=== PATIENT | female | born 1950 | race Caucasian/White ===

== ENCOUNTER 2020-09-12 16:37 | Inpatient (IN) | payer MEDICARE, OTHER ==
[~2020-09-12] VITALS: Ht 162.6 cm; Wt 80.8 kg
[~2020-09-12 16:37] MED LIST: ACETAZOLAMIDE500 MG PO; ASPIR-LOW81 MG PO; ATROPINE 1% EYELF; FUROSEMIDE40 MG PO; GLUCOTROL XL2.5 MG PO; LEVOFLOXACIN500 MG PO; LISINOPRIL10 MG PO; LISINOPRIL40 MG PO; METFORMIN HCL500 M2 PO; METRONIDAZOLE250 MG PO; POTASSIUM CHLO20 ME2 PO; PREDNISOLONE AC10 ML EYELF; ZOFRAN4 MG PO; [UNRECOGNIZED DRUG - OTHER] TOP
[2020-09-12 18:04] LABS: HEMOGLOBIN 11.2 gm/dl (12.3-15.3); RED BLOOD COUNT 3.71 M/UL (4.00-5.10); WHITE BLOOD COUNT 8.1 K/UL (4.5-11.0)
[2020-09-12 18:40] LABS: BUN/CREATININE RATIO 34 (0-10)
[2020-09-13] MEDS ORDERED: JANUMET XR 50-1 EAC1 PO (01:44)
[2020-09-13] MEDS ORDERED: LISINOPRIL10 MG PO (01:44)
[2020-09-13] MEDS ORDERED: LASIX40 MG PO (01:45)
[2020-09-15 02:47] LABS: HEMOGLOBIN 10.2 gm/dl (12.3-15.3); RED BLOOD COUNT 3.36 M/UL (4.00-5.10); WHITE BLOOD COUNT 8.2 K/UL (4.5-11.0)
[2020-09-16 03:39] LABS: HEMOGLOBIN 10.1 gm/dl (12.3-15.3); RED BLOOD COUNT 3.37 M/UL (4.00-5.10); WHITE BLOOD COUNT 8.8 K/UL (4.5-11.0)
[2020-09-17 04:41] LABS: RED BLOOD COUNT 3.29 M/UL (4.00-5.10); WHITE BLOOD COUNT 6.8 K/UL (4.5-11.0)
[2020-09-18] MEDS ORDERED: FUROSEMIDE40 MG PO (16:08)
[2020-09-18] MEDS ORDERED: JARDIANCE10 MG PO (16:08)
[2020-09-18] MEDS ORDERED: HYDRALAZINE HCL50 MG PO (16:08)
[2020-11-12] MEDS ORDERED: ZAROXOLYN/DIUL2.5 MG PO (01:45)
== END 2020-09-18 18:33 | disposition home or self-care (01) | DRG 291 ==
LOC: ER1 16:37 → CDU 21:35 → M/S 21:35
PROVIDERS: Internal Medicine; Nurse Practitioner; ADMIT Internal Medicine
DX: I50.43 Acute on chronic combined systolic (congestive) and diastolic (congestive) heart failure (principal); J96.01 Acute respiratory failure with hypoxia; I13.0 Hypertensive heart and chronic kidney disease with heart failure and stage 1 through stage 4 chronic kidney disease, or unspecified chronic kidney disease; N39.0 Urinary tract infection, site not specified; N17.9 Acute kidney failure, unspecified; B96.20 Unspecified Escherichia coli [E. coli] as the cause of diseases classified elsewhere; E66.9 Obesity, unspecified; K75.81 Nonalcoholic steatohepatitis (NASH); Z20.822 Contact with and (suspected) exposure to COVID-19; E11.9 Type 2 diabetes mellitus without complications; D64.9 Anemia, unspecified; I08.1 Rheumatic disorders of both mitral and tricuspid valves; I27.20 Pulmonary hypertension, unspecified; E11.22 Type 2 diabetes mellitus with diabetic chronic kidney disease; N18.30 Chronic kidney disease, stage 3 unspecified; Z90.710 Acquired absence of both cervix and uterus; Z90.49 Acquired absence of other specified parts of digestive tract; Z90.11 Acquired absence of right breast and nipple; Z79.82 Long term (current) use of aspirin; Z85.3 Personal history of malignant neoplasm of breast; Z68.32 Body mass index [BMI] 32.0-32.9, adult
CPT/HCPCS: 0240U; 36415; 36600; 71045; 80048; 80053; 81001; 82550; 82553; 82803; 82962; 83036; 83605; 83735; 83880; 84484; 85025; 85027; 85610; 87040; 87077; 87086; 87186; 93005; 96372; 96374; 96376; 99285; J0696; J1650; J1940

== ENCOUNTER 2020-11-10 18:24 | Emergency (ER) | payer MEDICARE ==
[~2020-11-10 18:24] MED LIST changes: +HYDRALAZINE HCL50 MG PO; +JANUMET XR 50-1 EAC1 PO; +JARDIANCE10 MG PO; +LASIX40 MG PO
[2020-11-10 20:01] LABS: HEMOGLOBIN 13.4 gm/dl (12.3-15.3); RED BLOOD COUNT 4.36 M/UL (4.00-5.10); WHITE BLOOD COUNT 9.7 K/UL (4.5-11.0)
[2020-11-12] MEDS ORDERED: ZAROXOLYN/DIUL2.5 MG PO (01:45)
== END 2020-11-10 23:00 | disposition home or self-care (01) ==
LOC: ER1 18:24
PROVIDERS: Physician Assistant Medical
DX: E11.65 Type 2 diabetes mellitus with hyperglycemia (principal); N17.9 Acute kidney failure, unspecified; Z20.822 Contact with and (suspected) exposure to COVID-19
CPT/HCPCS: 70450; 71046; 80053; 81001; 82010; 83735; 83880; 84100; 85025; 93005; 99285; J7040; U0002

== ENCOUNTER 2020-11-12 12:45 | Inpatient (IN) | payer MEDICARE ==
[~2020-11-12] VITALS: Ht 162.6 cm; Wt 89.0 kg
[~2020-11-12 12:45] MED LIST changes: +ZAROXOLYN/DIUL2.5 MG PO
[2020-11-12 14:31] LABS: HEMOGLOBIN 12.1 gm/dl (12.3-15.3); RED BLOOD COUNT 4.1 M/UL (4.00-5.10)
[2020-11-12 14:34] LABS: WHITE BLOOD COUNT 15.6 K/UL (4.5-11.0)
[2020-11-12] MEDS ORDERED: BASAGLAR K100 UNIT/1 SC (18:03)
[2020-11-12] MEDS ORDERED: TRAVATAN Z5 ML EYELF (18:04)
[2020-11-12] MEDS ORDERED: LASIX40 MG PO (18:04)
[2020-11-12] MEDS ORDERED: DORZOLAMIDE 2%10 ML EYELF (18:05)
[2020-11-12] MEDS ORDERED: COMBIGAN EYE DRO5 ML EYELF (18:06)
[2020-11-12] MEDS ORDERED: POLYSPORIN OP3.5 GM EYELF (18:07)
[2020-11-13 04:37] LABS: HEMOGLOBIN 10.1 gm/dl (12.3-15.3); RED BLOOD COUNT 3.32 M/UL (4.00-5.10); WHITE BLOOD COUNT 10.4 K/UL (4.5-11.0)
[2020-11-14 03:07] LABS: HEMOGLOBIN 8.7 gm/dl (12.3-15.3); RED BLOOD COUNT 2.86 M/UL (4.00-5.10); WHITE BLOOD COUNT 6.6 K/UL (4.5-11.0)
[2020-11-15 02:47] LABS: RED BLOOD COUNT 3.03 M/UL (4.00-5.10); WHITE BLOOD COUNT 6.1 K/UL (4.5-11.0)
[2020-11-16 02:24] LABS: HEMOGLOBIN 7.6 gm/dl (12.3-15.3)
[2020-11-16 02:25] LABS: RED BLOOD COUNT 2.52 M/UL (4.00-5.10); WHITE BLOOD COUNT 10.1 K/UL (4.5-11.0)
[2020-11-17 04:28] LABS: HEMOGLOBIN 8.3 gm/dl (12.3-15.3); RED BLOOD COUNT 2.74 M/UL (4.00-5.10); WHITE BLOOD COUNT 9.2 K/UL (4.5-11.0)
[2020-11-17 19:01] LABS: URINE TOTAL PROTEIN 100 mg/dl
[2020-11-18 04:24] LABS: HEMOGLOBIN 7.9 gm/dl (12.3-15.3); RED BLOOD COUNT 2.62 M/UL (4.00-5.10); WHITE BLOOD COUNT 7.6 K/UL (4.5-11.0)
--- NOTE | 2020-11-18 22:15 | NUR ---
called at 2139 asking pharmacy to bring patient's zosyn for 2200 dose, still waiting
[2020-11-19 07:06] LABS: HEMOGLOBIN 7.6 gm/dl (12.3-15.3); RED BLOOD COUNT 2.52 M/UL (4.00-5.10); WHITE BLOOD COUNT 7.6 K/UL (4.5-11.0)
[2020-11-19 12:14] LABS: COMPLEMENT C3, SERUM 132 mg/dL (82-167); COMPLEMENT C4, SERUM 26 mg/dL (12-38)
[2020-11-19 13:15] LABS: ANTI-DSDNA ANTIBODIES <1 IU/mL (0-9)
[2020-11-19 16:15] LABS: A/G RATIO 0.9 (0.7-1.7); ALBUMIN 2.2 g/dL (2.9-4.4); ALPHA-1-GLOBULIN 0.3 g/dL (0.0-0.4); ALPHA-2-GLOBULIN 0.8 g/dL (0.4-1.0); BETA GLOBULIN 0.9 g/dL (0.7-1.3); GAMMA GLOBULIN 0.7 g/dL (0.4-1.8); GLOBULIN, TOTAL 2.7 g/dL (2.2-3.9); IMMUNOGLOBULIN A, QN, SERUM 186 mg/dL (87-352); IMMUNOGLOBULIN G, QN, SERUM 677 mg/dL (586-1602); IMMUNOGLOBULIN M, QN, SERUM 49 mg/dL (26-217); M-SPIKE Not Observed g/dL (Not Observed); PROTEIN, TOTAL, SERUM 4.9 g/dL (6.0-8.5)
[2020-11-20 14:11] LABS: ANTIMYELOPEROXIDASE (MPO) ABS <9.0 U/mL (0.0-9.0); ANTIPROTEINASE 3 (PR-3) ABS <3.5 U/mL (0.0-3.5); ATYPICAL PANCA <1:20 titer (Neg:<1:20); CYTOPLASMIC (C-ANCA) <1:20 titer (Neg:<1:20); PERINUCLEAR (P-ANCA) <1:20 titer (Neg:<1:20)
[2020-11-23 13:01] LABS: HEMOGLOBIN 7.9 gm/dl (12.3-15.3); RED BLOOD COUNT 2.59 M/UL (4.00-5.10); WHITE BLOOD COUNT 6.7 K/UL (4.5-11.0)
[2020-11-24 06:58] LABS: HEMOGLOBIN 7.6 gm/dl (12.3-15.3); RED BLOOD COUNT 2.45 M/UL (4.00-5.10); WHITE BLOOD COUNT 6.6 K/UL (4.5-11.0)
[2020-11-28 09:20] LABS: HEMOGLOBIN 7.9 gm/dl (12.3-15.3); RED BLOOD COUNT 2.58 M/UL (4.00-5.10); WHITE BLOOD COUNT 9.9 K/UL (4.5-11.0)
[2020-11-29 12:48] LABS: HEMOGLOBIN 8.3 gm/dl (12.3-15.3); RED BLOOD COUNT 2.65 M/UL (4.00-5.10); WHITE BLOOD COUNT 8.7 K/UL (4.5-11.0)
[2020-11-30 06:00] LABS: HEMOGLOBIN 7.4 gm/dl (12.3-15.3); RED BLOOD COUNT 2.37 M/UL (4.00-5.10); WHITE BLOOD COUNT 7.7 K/UL (4.5-11.0)
[2020-12-01 04:18] LABS: HEMOGLOBIN 7.4 gm/dl (12.3-15.3); RED BLOOD COUNT 2.43 M/UL (4.00-5.10); WHITE BLOOD COUNT 6.9 K/UL (4.5-11.0)
[2020-12-02 08:27] LABS: HEMOGLOBIN 7.9 gm/dl (12.3-15.3); RED BLOOD COUNT 2.56 M/UL (4.00-5.10); WHITE BLOOD COUNT 7.7 K/UL (4.5-11.0)
[2020-12-02] MEDS ORDERED: NORVASC5 MG PO (10:00)
[2020-12-02] MEDS ORDERED: LACTULOSE20 GM/30 M PO (10:19)
[2020-12-02] MEDS ORDERED: LASIX40 MG PO (10:19)
[2020-12-02] MEDS ORDERED: PERCOCET 5/325 T1 EA PO (10:19)
--- NOTE | 2020-12-02 14:56 | NUR ---
PATIENT DISCHARGED AND OUT OF BUILDING BEFORE LAST NURSING COMMUNICATION ADDED. WILL PASS ALONG IN REPORT TO [facility].
== END 2020-12-02 14:49 | disposition home or self-care (01) | DRG 492 ==
LOC: ER1 12:45 → CDU 17:03 → M/S 17:03 → PROG CARE 18:14 → M/S 11-15 15:14
PROVIDERS: Family Medicine; Internal Medicine; Internal Medicine Nephrology; Orthopaedic Surgery; Physician Assistant Medical; ADMIT Internal Medicine
PROC: B24BZZ4 Ultrasonography of Heart with Aorta, Transesophageal (ICD-10-PCS; 2020-11-13)
PROC: 0QSH04Z Reposition Left Tibia with Internal Fixation Device, Open Approach (ICD-10-PCS; principal; 2020-11-14 11:00)
DX: S82.852A Displaced trimalleolar fracture of left lower leg, initial encounter for closed fracture (principal); I50.43 Acute on chronic combined systolic (congestive) and diastolic (congestive) heart failure; I13.0 Hypertensive heart and chronic kidney disease with heart failure and stage 1 through stage 4 chronic kidney disease, or unspecified chronic kidney disease; N17.9 Acute kidney failure, unspecified; N13.6 Pyonephrosis; E87.1 Hypo-osmolality and hyponatremia; Z20.822 Contact with and (suspected) exposure to COVID-19; N18.30 Chronic kidney disease, stage 3 unspecified; S93.511A Sprain of interphalangeal joint of right great toe, initial encounter; E78.5 Hyperlipidemia, unspecified; K70.30 Alcoholic cirrhosis of liver without ascites; E66.9 Obesity, unspecified; I08.1 Rheumatic disorders of both mitral and tricuspid valves; I27.20 Pulmonary hypertension, unspecified; S82.491A Other fracture of shaft of right fibula, initial encounter for closed fracture; E87.6 Hypokalemia; M81.0 Age-related osteoporosis without current pathological fracture; D63.1 Anemia in chronic kidney disease; K56.41 Fecal impaction; W18.30XA Fall on same level, unspecified, initial encounter; E11.22 Type 2 diabetes mellitus with diabetic chronic kidney disease; R33.9 Retention of urine, unspecified; Z79.4 Long term (current) use of insulin; Z68.33 Body mass index [BMI] 33.0-33.9, adult; Z90.49 Acquired absence of other specified parts of digestive tract; Z90.11 Acquired absence of right breast and nipple; Z79.82 Long term (current) use of aspirin; Z80.9 Family history of malignant neoplasm, unspecified; Z82.49 Family history of ischemic heart disease and other diseases of the circulatory system
CPT/HCPCS: ECHO; 29505; 36415; 70450; 71045; 71046; 73564; 73590; 73610; 73630; 73700; 74018; 76000; 80048; 80053; 81001; 82009; 82010; 82550; 82553; 82565; 82570; 82784; 82962; 82977; 83036; 83520; 83540; 83550; 83735; 83874; 83880; 84100; 84132; 84133; 84155; 84156; 84165; 84300; 84484; 85014; 85018; 85025; 85027; 86038; 86160; 86225; 86256; 86334; 87086; 89050; 93005; 93306; 96372; 96374; 96375; 97110-GP-CQ; 97162; 97164; 97165; 97530; 97530-GP-CQ; 97535; 99285; C1713; J0690; J1100; J1644; J1940; J2001; J2250; J2270; J2405; J2543; J2550; J2704; J2795; J3010; J3480; J7030; J7040; J7120; U0002

== ENCOUNTER 2021-06-06 19:09 | Inpatient (IN) | payer MEDICARE, MEDICAID ==
[~2021-06-06] VITALS: Ht 162.6 cm; Wt 98.4 kg
[~2021-06-06 19:09] MED LIST changes: +BASAGLAR K100 UNIT/1 SC; +COMBIGAN EYE DRO5 ML EYELF; +DORZOLAMIDE 2%10 ML EYELF; +LACTULOSE20 GM/30 M PO; +NORVASC5 MG PO; +PERCOCET 5/325 T1 EA PO; +POLYSPORIN OP3.5 GM EYELF; +TRAVATAN Z5 ML EYELF
[2021-06-06 20:13] LABS: HEMOGLOBIN 12.1 gm/dl (12.3-15.3); RED BLOOD COUNT 4.15 M/UL (4.00-5.10); WHITE BLOOD COUNT 8.5 K/UL (4.5-11.0)
[2021-06-07] MEDS ORDERED: FUROSEMIDE40 MG PO (00:50)
[2021-06-07] MEDS ORDERED: LOSARTAN POTASS50 MG PO (00:51)
[2021-06-07 06:34] LABS: HEMOGLOBIN 10.7 gm/dl (12.3-15.3); RED BLOOD COUNT 3.81 M/UL (4.00-5.10)
[2021-06-07 06:39] LABS: WHITE BLOOD COUNT 5.9 K/UL (4.5-11.0)
[2021-06-08] MEDS ORDERED: SYNTHROID50 MCG PO (00:51)
[2021-06-08] MEDS ORDERED: XALATAN2.5 ML OP (00:56)
--- NOTE | 2021-06-08 01:15 | NUR ---
AT 2051 GAVE 5 UNITS OF LANTUS THAT WAS DUE AT 0900. CONTACTED THE MD AND HE STATED IT WAS OK. PROVIDED SNACKS TO THE PT. PT. BLOOD SUGAR WAS 157. PT. AGREED TO CALL OUT IF FEELING OF LOW BLOOD SUGAR. THE SYSTEM DIDN'T FLAG THE EARLY DOSE WHEN MEDICATION WAS SCANNED.
[2021-06-08 06:16] LABS: HEMOGLOBIN 9.6 gm/dl (12.3-15.3); WHITE BLOOD COUNT 5.2 K/UL (4.5-11.0)
[2021-06-08 06:19] LABS: RED BLOOD COUNT 3.37 M/UL (4.00-5.10)
[2021-06-08] MEDS ORDERED: ASPIRIN325 MG PO (14:16)
[2021-06-09 07:33] LABS: HEMOGLOBIN 10.6 gm/dl (12.3-15.3); RED BLOOD COUNT 3.78 M/UL (4.00-5.10); WHITE BLOOD COUNT 5.3 K/UL (4.5-11.0)
--- NOTE | 2021-06-09 10:02 | NUR ---
NOTIFIED OF PATIENTS BLOOD PRESSURE OF 187/83 AND SHE STATED THAT SHE WILL PUT ORDERS IN.
[2021-06-10 03:45] LABS: HEMOGLOBIN 9.1 gm/dl (12.3-15.3); WHITE BLOOD COUNT 4.8 K/UL (4.5-11.0)
[2021-06-10 03:46] LABS: RED BLOOD COUNT 3.21 M/UL (4.00-5.10)
[2021-06-10 12:14] LABS: CREATININE, URINE 66.9 mg/dL (Not Estab.)
[2021-06-12 06:59] LABS: HEMOGLOBIN 9.6 gm/dl (12.3-15.3); RED BLOOD COUNT 3.39 M/UL (4.00-5.10); WHITE BLOOD COUNT 5.2 K/UL (4.5-11.0)
[2021-06-14] MEDS ORDERED: CARVEDILOL12.5 MG PO (11:56)
[2021-06-14] MEDS ORDERED: FERROUS SULFAT325 M2 PO (11:56)
[2021-06-14] MEDS ORDERED: HYDRALAZINE HCL10 MG PO (11:56)
[2021-06-14] MEDS ORDERED: SODIUM BICARBO650 M1 PO (11:56)
[2021-06-14] MEDS ORDERED: ISOSORBIDE MONO30 MG PO (11:56)
[2021-06-14] MEDS ORDERED: DEMADEX 20 MG T20 MG PO (11:56)
[2021-06-14] MEDS ORDERED: CATAPRES 0.1MG0.1 MG PO (11:56)
== END 2021-06-14 15:00 | disposition home or self-care (01) | DRG 291 ==
LOC: ER1 19:09 → MED SURG 4 22:28 → CDU 22:28 → MED SURG 4 06-07 00:10
PROVIDERS: Internal Medicine; Internal Medicine Nephrology; Physician Assistant; Physician Assistant Medical; ADMIT Internal Medicine
DX: I13.0 Hypertensive heart and chronic kidney disease with heart failure and stage 1 through stage 4 chronic kidney disease, or unspecified chronic kidney disease (principal); E43 Unspecified severe protein-calorie malnutrition; Z20.822 Contact with and (suspected) exposure to COVID-19; I50.43 Acute on chronic combined systolic (congestive) and diastolic (congestive) heart failure; N04.9 Nephrotic syndrome with unspecified morphologic changes; Z68.41 Body mass index [BMI] 40.0-44.9, adult; N17.9 Acute kidney failure, unspecified; E87.2 Acidosis; E11.21 Type 2 diabetes mellitus with diabetic nephropathy; E03.9 Hypothyroidism, unspecified; D63.1 Anemia in chronic kidney disease; N18.30 Chronic kidney disease, stage 3 unspecified; E11.22 Type 2 diabetes mellitus with diabetic chronic kidney disease; K75.81 Nonalcoholic steatohepatitis (NASH); I27.20 Pulmonary hypertension, unspecified; E66.01 Morbid (severe) obesity due to excess calories; I08.1 Rheumatic disorders of both mitral and tricuspid valves; Z85.3 Personal history of malignant neoplasm of breast; Z90.49 Acquired absence of other specified parts of digestive tract; Z90.710 Acquired absence of both cervix and uterus; Z90.11 Acquired absence of right breast and nipple; Z82.49 Family history of ischemic heart disease and other diseases of the circulatory system; Z79.01 Long term (current) use of anticoagulants
CPT/HCPCS: ECHO; 36415; 71045; 80048; 80053; 82043; 82550; 82553; 82570; 82728; 82803; 82962; 83540; 83550; 83605; 83735; 83874; 83880; 84156; 84484; 85025; 93005; 93306; 99285; J1205; J1644; J1756; J1940; J7030; P9047; Q5106; U0002

== ENCOUNTER → 2021-06-15 | Outpatient (CLI) | payer MEDICARE ==
[~2021-06-15] MED LIST changes: +ASPIRIN325 MG PO; +CARVEDILOL12.5 MG PO; +CATAPRES 0.1MG0.1 MG PO; +DEMADEX 20 MG T20 MG PO; +FERROUS SULFAT325 M2 PO; +HYDRALAZINE HCL10 MG PO; +ISOSORBIDE MONO30 MG PO; +LOSARTAN POTASS50 MG PO; +SODIUM BICARBO650 M1 PO; +SYNTHROID50 MCG PO; +XALATAN2.5 ML OP
== END ==
LOC: LAB 14:35
PROVIDERS: Internal Medicine Nephrology
DX: R73.9 Hyperglycemia, unspecified (principal)
CPT/HCPCS: 36415; 80048